=== PATIENT | male | born 1940 | race Caucasian/White ===

== ENCOUNTER 2016-11-08 12:21 | Emergency (ER) | payer OTHER, BC ==
--- NOTE | 2016-11-08 13:15 | EDPHY ---
H & P Stated Complaint: Mechanical fall while walking Time Seen by Provider: 11/08/16 12:59 HPI/ROS: CHIEF COMPLAINT: Mechanical fall, facial injury, lip laceration, neck pain HISTORY OF PRESENT ILLNESS: The patient presents to the ED after mechanical fall. The patient was reportedly walking and slipped on a steep [place]. He fell forward striking his upper lip and nose. The patient denies loss of consciousness. In the ED he complains of moderate facial pain and posterior neck pain. The patient denies chest pain, shortness of breath, numbness, weakness, back pain or abdominal pain. The patient denies taking any anticoagulant medications. He does report being currently treated for hypertension. REVIEW OF SYSTEMS: A comprehensive 10 point review of systems is otherwise negative aside from elements mentioned in the history of present illness. Source: Patient Exam Limitations: No limitations - Personal History Current Tetanus/Diphtheria Vaccine: Unsure Current Tetanus Diphtheria and Acellular Pertussis (TDAP): Unsure - Medical/Surgical History Hx Asthma: No Hx Chronic Respiratory Disease: No Hx Diabetes: No Hx Cardiac Disease: No Hx Renal Disease: No Hx Cirrhosis: No Hx Alcoholism: No Hx HIV/AIDS: No Hx Splenectomy or Spleen Trauma: No Other PMH: HTN, gout, TBI, TIA - Social History Smoking Status: Never smoked - Physical Exam Exam: General Appearance: Alert, no distress Head: Tenderness, swelling and bruising noted to the nose consistent with clinical nasal fracture Eyes: Pupils equal, round, reactive ENT, Mouth: No hemotympanum, no oral trauma, no septal hematoma, 1 cm intraoral laceration noted to the wet mucosa of the upper lip Neck: Tenderness to palpation noted in the mid cervical spine Respiratory: No chest wall tender, subcutaneous air, lungs clear bilaterally Cardiovascular: Regular rate and rhythm Abdomen: Abdomen is soft and nontender, pelvis stable Skin: No lacerations, No abrasion Back: No midline T/L/S pain Extremities: Nontender, full range of motion Neurological: A&Ox3, normal motor function, normal sensory exam Constitutional: Initial Vital Signs Temperature (C) 36.3 C 11/08/16 12:21 Heart Rate 61 11/08/16 12:21 Respiratory Rate 16 11/08/16 12:21 Blood Pressure 209/102 H 11/08/16 12:21 O2 Sat (%) 94 11/08/16 12:21 O2 Delivery Mode Room Air Allergies/Adverse Reactions: Penicillins Allergy (Verified 11/08/16 12:37) Home Medications: Medication Instructions Recorded Unobtainable 11/08/16 Medical Decision Making - Diagnostics Imaging: CT head without contrast: Images reviewed by myself and discussed with radiologist. Negative for intracranial hemorrhage, fracture of the maxillary sinus wall anterior and posteriorly noted. CT cervical spine without contrast: Images reviewed by myself and discussed with radiologist. Negative for acute fracture. CT results reported to me by Dr. Serge Aguilar Procedures: Procedure: Laceration repair. Verbal consent was obtained from the patient. The 1 cm laceration on the intraoral laceration on the wet mucosa of the upper lip was anesthetized using lidocaine with epinephrine. The wound was scrubbed, draped and explored to its base with a gloved finger. There were no deep structures involved. The wound was repaired with 4-0 Vicryl sutures. The wound repair was simple. The procedure was performed by myself. ED Course/Re-evaluation: The patient presents to the ED with facial trauma neck pain following a mechanical fall. The patient was placed in cervical spine immobilization and taken for a stat CT scan of his head and cervical spine given his complaints of headache, clinical findings revealing midline cervical spine tenderness and the mechanism of his fall. Fortunately, CT scan of the head and cervical spine demonstrate no evidence of intracranial hemorrhage, skull fracture or cervical spine fracture. The patient does have a fracture of his maxillary sinus. The patient has laceration repaired by myself in the ED with absorbable Vicryl sutures. The patient had multiple examinations by myself over a 2 hour period. He remains with a normal neurologic examination, GCS of 15 and managed pain. The patient will be referred to our on-call ENT physician for further evaluation of his maxillary sinus fracture. The patient has been instructed to return to the ED for severe headache, new pain, worsening symptoms or other concerns. Patient was re-evaluated at 3:00 p.m.. He is ambulatory and in no acute distress. His GCS remains 15. I have removed his cervical spine collar. I have cleared his cervical spine radiographically. He continues to be neurologically intact and has spinal tenderness which I believe is secondary to a myofascial strain. The patient will be referred to our on-call ENT physician Dr. Mercer. He tells me he does have an appointment to see a new primary care provider and [place] next week. He will have a blood pressure recheck done at that time. The patient does have a history of known hypertension. Blood pressure is currently 180/95. He will follow up with his physician in [place] at the [facility] for a blood pressure recheck this week. Differential Diagnosis: Differential diagnosis considered includes intracranial hemorrhage, skull fracture, cervical spine fracture, intraoral injury, laceration - Data Points Medications Given: Discontinued Medications Oxycodone/Acetaminophen (Percocet 5/325) 1 tab PO EDNOW ONE Stop: 11/08/16 14:16 Last Admin: 11/08/16 14:17 Dose: 1 tab Departure - Departure Disposition: Home, Routine, Self-Care Clinical Impression: Lip laceration, Maxillary fracture, Facial abrasion Condition: Good Instructions: Laceration (ED) Additional Instructions: 1. You have a laceration of your lip which was repaired with stitches which would dissolve on their own. 2. You do have a fracture involving your facial bones, please schedule a follow- up appointment with the Ear Nose Throat surgeon you have been referred to for further evaluation of this injury. 3. Please return to the ED for headache, new pain, any concerns or worsening symptoms. Referrals: Rome Mercer MD [Medical Doctor] - As per Instructions
[2016-11-08] MEDS ORDERED: OXYCODONE/APAP 5/325 TAB PO ONE (14:15)
[2016-11-08] MEDS ORDERED: OXYCODONE/APAP 5/325 TAB ONE (14:16)
[2016-11-08 15:04] VITALS: BP 189/101; PULSE 59; RESP 18; TEMP 97.7; O2SAT 93
== END 2016-11-08 15:04 | disposition home or self-care (01) ==
LOC: EDBD 12:21
PROC: 0CQ0XZZ Repair Upper Lip, External Approach (ICD-10-PCS; principal; 2016-11-08)
DX: S02.401A Maxillary fracture, unspecified side, initial encounter for closed fracture (principal); S01.511A Laceration without foreign body of lip, initial encounter; I10 Essential (primary) hypertension; Z86.73 Personal history of transient ischemic attack (TIA), and cerebral infarction without residual deficits; W01.198A Fall on same level from slipping, tripping and stumbling with subsequent striking against other object, initial encounter; Y99.8 Other external cause status; Y93.01 Activity, walking, marching and hiking